=== PATIENT | female | born 1955 | race Caucasian/White ===

== ENCOUNTER → 2016-11-08 | Outpatient (CLI) | payer OTHER ==
[~2016-11-08] MED LIST: ASPIRIN EC81 MG PO; CALCIUM CARBON600 MG PO; CENTRUM COMPLE1 EACH PO; COLACE100 MG PO; COZAAR25 MG PO; DILAUDID 2MG(HYD2 MG PO; ECOTRIN325 MG PO; LEVOTHROID (SY50 MCG PO; MIRALAX17 GM PO; PLAQUENIL200 MG PO; PLAVIX75 MG PO; PROLIA60 MG/ML IM; PROTONIX40 MG PO; ROXICODONE 5MG (5 MG PO; SENNALAX-S TAB1 EACH PO; TOPROL XL25 MG PO; TYLENOL EXTRA500 MG PO; ULTRAM50 MG PO; VALIUM5 MG PO; VITAMIN B-121000 MCG PO
== END | disposition disaster alternative care site (69) ==
LOC: GRAD 09:26
DX: M25.531 Pain in right wrist (principal); S52.501A Unspecified fracture of the lower end of right radius, initial encounter for closed fracture

== ENCOUNTER → 2016-12-21 | Outpatient (CLI) | payer OTHER | END | disposition disaster alternative care site (69) | LOC: GBCOE 13:59 | DX: Z12.31 Encounter for screening mammogram for malignant neoplasm of breast (principal) | CPT/HCPCS: G0202 ==

== ENCOUNTER 2017-03-26 13:00 | Inpatient (IN) | payer OTHER ==
[~2017-03-26] VITALS: Ht 167.6 cm; Wt 91.0 kg
--- NOTE | ~2017-03-26 | DS ---
PATIENT'S NAME: RANI JUNIOR [facility] AGE: 61 Y [address] ROOM: [place] [address] LOCATION: [facility] ADMIT DATE: 04/08/2017 Discharge Summary DISCHARGE DATE: 04/10/2017 FAMILY PHYSICIAN: Swathi Gilliam MD ATTENDING PHYSICIAN: Blake Pantoja PRIMARY DIAGNOSIS: Degenerative joint disease of the right knee. SECONDARY DIAGNOSIS: Include 1. Lupus. 2. Chronic ischemic heart disease. 3. Gastroesophageal reflux disease. 4. Hyperlipidemia. 5. Hypothyroidism. 6. Coronary artery disease. PROCEDURE PERFORMED: Right total knee arthroplasty with computer navigation. HISTORY: The patient is a 61-year-old female, who presents with advanced right knee degenerative joint disease and associated severely compromised activities of daily living. The patient has decided to proceed with total knee arthroplasty after having been thoroughly counseled regarding the risks, benefits, limitations and alternatives. Please refer to the outpatient clinic notes and admission history and physical for this patient. HOSPITAL COURSE: The patient underwent a right total knee arthroplasty on 04/08/2017 without complications. Spinal anesthesia plus adductor canal block plus periarticular local anesthesia was utilized. The patient received 24 hours of perioperative prophylactic antibiotics and remained hemodynamically stable, neurovascularly intact throughout the entire hospital course. The postoperative prophylactic deep venous thrombosis prophylaxis consisted of aspirin 325, early mobilization and pneumatic compression devices. Daily physical therapy for gait training, transfer training range of motion and quadriceps isometric exercises were received. The patient progressed well in physical therapy. On the date of discharge, 04/10/2017, the incision at the knee was healing well and showed no signs of infection. DISPOSITION: Home. DISCHARGE ACTIVITY: The patient is to bear weight as tolerated with range of motion and quadriceps isometric exercises as instructed. The operative extremity is to be elevated at least 90% of the day. There is to be sterile 4x4 gauze dressings to the incision daily. Dr. Pantoja is to be notified immediately if there is any increased pain, fevers, chills erythema or drainage. PATIENT'S NAME: RANI JUNIOR [facility] AGE: 61 Y [address] ROOM: [place] [address] LOCATION: [facility] ADMIT DATE: 04/08/2017 Discharge Summary DISCHARGE DATE: 04/10/2017 FAMILY PHYSICIAN: Swathi Gilliam MD ATTENDING PHYSICIAN: Blake Pantoja DISCHARGE MEDICATIONS: Include 1. Aspirin 325 take one tablet p.o. daily for DVT prevention. 2. Valium 5 mg take one half tablet to one tablet every 6 hours as needed for muscle spasms. 3. Dilaudid 2 mg take one to two tablets p.o. every 4 hours as needed for pain. FOLLOWUP: Followup appointment is to be with Dr. Pantoja on April 16, 2017 for initial postoperative evaluation and x-rays at that time. FAISAL YBARRA FOR BLAKE PANTOJA MD TLB/modl /[id number] d: 04/17/17 0242 t: 04/18/17 1120, DISCHARGE SUMMARY
--- NOTE | ~2017-03-26 | OR ---
PATIENT'S NAME: RANI JUNIOR [facility] AGE: 61 Y [address] ROOM: [place] [address] LOCATION: [facility] ADMIT DATE: 04/08/2017 OR/Procedure Report DISCHARGE DATE: FAMILY PHYSICIAN: Swathi Gilliam MD ATTENDING PHYSICIAN: BLAKE PANTOJA SURGEON: Blake Pantoja MD ASSISTANT THERAPY AIDE: 1. FAISAL Philippe. 2. Kyler Snow CST/FIELD AUDITOR. DATE OF PROCEDURE: 04/08/2017 PRE-OP DIAGNOSIS: Degenerative joint disease, right knee. POST-OP DIAGNOSIS: Degenerative joint disease, right knee. OPERATION: Right total knee arthroplasty with computer navigation. ANESTHESIA: Spinal anesthesia plus adductor canal block plus periarticular local anesthesia (ropivacaine with epinephrine and Toradol). ESTIMATED BLOOD LOSS: Less than 10 mL. DRAIN: None. SPECIMEN: None. COMPLICATIONS: None. IMPLANT SYSTEM: Jose Triathlon Size 5 right posterior stabilized femoral component Size 4 universal modular tibial baseplate 11 mm posterior stabilized size 4 X3 tibial polyethylene insert 29 mm Oval X3 patella component (triple pegged). INDICATIONS FOR SURGERY: The patient is a 61-year-old female who presents with advanced right knee degenerative joint disease and associated severely compromised activities of daily living. The patient has decided to proceed with knee replacement after having been thoroughly counseled regarding the associated risks, benefits, and limitations. We have specifically reviewed the risks and implications of infection, deep venous thrombosis, pulmonary embolism, mortality, neurovascular complications, blood transfusion (and associated potential for disease transmission or transfusion reaction), stiffness, instability, mechanical deterioration of the components (due to wear and or loosening), and the potential need for revision. We have also emphasized the importance of active involvement and compliance with post- operative physical therapy as a means of optimizing range of motion and PATIENT'S NAME: RANI JUNIOR [facility] AGE: 61 Y [address] ROOM: [place] [address] LOCATION: [facility] ADMIT DATE: 04/08/2017 OR/Procedure Report DISCHARGE DATE: FAMILY PHYSICIAN: Swathi Gilliam MD ATTENDING PHYSICIAN: BLAKE PANTOJA functional recovery. Informed consent has been granted. DESCRIPTION OF PROCEDURE: The patient was positioned supine after administration of anesthesia and prophylactic antibiotics. A well-padded pneumatic tourniquet was placed around the right proximal thigh, and the right lower extremity was prepped and draped with vigilant sterile technique. The patient's name as well as the intended operative side and procedure were confirmed with a verbal time-out involving myself, the circulating nurse, the scrub nurse, and the anesthesiologist. Examination under anesthesia demonstrated well-healed inferomedial and inferolateral arthroscopy portal scars. There were no active skin lesions or masses. There was a large effusion. There was no erythema. There was no abnormal warmth. Range of motion under anesthesia was from full extension to 130 degrees of flexion. There was no ligamentous insufficiency. The right lower extremity was elevated and exsanguinated with an Esmarch wrap, and the pneumatic tourniquet was inflated to 300mmHg. The knee was approached through a longitudinal midline incision. A medial parapatellar arthrotomy was performed and the patella was everted. Examination of the joint space demonstrated a large amount of benign-appearing translucent synovial fluid. There were no loose bodies. The cruciate ligaments were intact. There was mild fibrosis of the infrapatellar fat pad. There was a small popliteal cyst, which I decompressed into the posteromedial aspect of the joint by dilating its point of communication with the posteromedial capsule. There was full- thickness loss of articular cartilage involving a 2 x 3 cm diameter region of the medial femoral condyle. There were intermixed grade 3 and grade 4 degenerative changes involving the entire lateral half of the femoral trochlea. There was full-thickness fissuring at the apex of the patella and the lateral facet of the patella. There were moderate grade 3 degenerative changes across the equator of the patella. There was a moderate-sized osteophyte at the medial femoral condyle. There was a moderate-sized osteophyte at the medial femoral trochlea. There was a small osteophyte at the lateral femoral trochlea. There were mild grade 3 degenerative changes throughout the anterior half of the medial tibial plateau. There were small osteophytes at the medial tibial plateau and the lateral femoral condyle. There were mild grade 2 degenerative changes at the lateral femoral condyle and lateral tibial plateau. The medial meniscus was truncated. There was mild inner perimeter tearing at the lateral meniscus. There was mild chondrocalcinosis at the lateral meniscus. Significant sclerosis was noted in the cancellous bone at the anterior distal femoral metaphysis after making the anterior phalange resection (consistent with the bone infarct noted at the distal femoral metaphysis on the preoperative radiographs). PATIENT'S NAME: RANI JUNIOR [facility] AGE: 61 Y [address] ROOM: [id number] [place], [place] [address] LOCATION: [facility] ADMIT DATE: 04/08/2017 OR/Procedure Report DISCHARGE DATE: FAMILY PHYSICIAN: Swathi Gilliam MD ATTENDING PHYSICIAN: BLAKE PANTOJA Remnants of the menisci and cruciate ligaments were excised. The [employer] computer navigation femoral tracker was pinned in place at the distal aspect of the femoral trochlea. Absence of motion between the femur and the tracking device was confirmed manually and visually. Femoral osseous landmarks were obtained in order to calibrate the computer navigation system. Landmarks included the center of rotation of the ipsilateral hip, the center-point of the distal femur, the femoral AP axis, 57 points on the medial femoral condyle articular surface, and 57 points on the lateral femoral condyle articular surface. The [employer] computer navigation system was subsequently utilized to position the distal femoral resection block such that the distal femoral resection was performed perfectly perpendicular to the femoral mechanical axis. The distal femoral resection was performed with a [employer] oscillating saw. The [employer] computer navigation tibial tracker was pinned in place at the anterior aspect of the tibial plateau. Absence of motion between the tibia and the tracking device was confirmed manually and visually. Tibial osseous landmarks were obtained in order to calibrate the computer navigation system. Landmarks included the center-point of the tibial plateau, the AP tibial axis, 57 points on the medial tibial plateau articular surface, 57 points on the lateral tibial plateau articular surface, the medial malleolus, and the lateral malleolus. The [employer] computer navigation system was subsequently utilized to position the proximal tibial resection block such that the proximal tibial resection was performed perfectly perpendicular to the tibial mechanical axis. The proximal tibial resection was performed with a [employer] Precision oscillating saw. Perpendicularity of the tibial resection with respect to the tibial shaft axis was reconfirmed by inserting a spacer- block attached to an extramedullary guide leigha. External rotation of the anterior and posterior femoral resections were set parallel to the epicondylar axis and carefully adjusted in order to create a rectangular flexion gap. The box resection was performed with a reciprocating saw. Anterior and posterior chamfer resections were performed with the oscillating saw. Posterior condyle osteophytes were excised with an osteotome. All other osteophytes were excised with a rongeur. Resection of all remnants of the menisci was reconfirmed. Flexion and extension gaps were confirmed to be symmetric and well balanced with a spacer-block technique. The patella resection was performed with an oscillating saw such that the composite thickness of the reconstructed patella was equivalent to the thickness of the [place] patella. Patella tracking was optimal and there was no need for a lateral retinacular release. All trial components were removed and all prepared osseous surfaces were thoroughly irrigated with pulsatile saline lavage and dried prior to cementing PATIENT'S NAME: RANI JUNIOR [facility] AGE: 61 Y [address] ROOM: [address] [address] LOCATION: [facility] ADMIT DATE: 04/08/2017 OR/Procedure Report DISCHARGE DATE: FAMILY PHYSICIAN: Swathi Gilliam MD ATTENDING PHYSICIAN: BLAKE PANTOJA all three components in a single stage using [employer] Simplex cement containing pre-mixed tobramycin. All extruded excess cement was removed. The entire joint space was thoroughly inspected and thoroughly irrigated with bacteriostatic pulsatile saline lavage to assure that there was no residual debris of any sort. Final range of motion was from full extension (with no passive hyperextension) to 130 degrees of flexion. Patella tracking was reconfirmed to be optimal. There was excellent anteroposterior stability at 90 degrees of flexion. There was less than 1 mm of medial lift-off to valgus stress in full extension. There was less than 1 mm of lateral lift-off to varus stress in full extension. The arthrotomy was closed with multiple simple and [id number] interrupted #1 Vicryl. Subcutaneous tissues were thoroughly re-irrigated with bacteriostatic pulsatile saline lavage. Subcutaneous tissues were re- approximated with simple buried interrupted #0 Vicryl sutures. The skin was closed with simple buried interrupted 2-0 Vicryl sutures followed by surgical erlinda. The dressing consisted of Xeroform gauze, 4x4 gauze, ABD pads and two 6-inch Gaetano Wraps. There were no intra-operative complications. It should be noted that the physician's evaluation assistant played an active, integral role throughout this entire operation. By providing expert retraction, they greatly facilitated and expedited safe and effective exposure of the distal femur, proximal tibia and patella for preparation and implantation of the components. They were also actively involved in the patient's positioning, prepping and draping, as well as wound closure. MD VIKI OCONNELL/stefano /[id number] d: 04/08/17 2248 t: 04/13/17 1149, OPERATIVE SUMMARY
[2017-03-26] MEDS ORDERED: ASPIRIN EC81 MG PO (14:33)
[2017-03-26] MEDS ORDERED: CALCIUM CARBON600 MG PO (14:34)
[2017-03-26] MEDS ORDERED: VITAMIN B-121000 MCG PO (14:34)
[2017-03-26] MEDS ORDERED: TYLENOL EXTRA500 MG PO (14:35)
[2017-03-26] MEDS ORDERED: ULTRAM50 MG PO (14:35)
[2017-03-26] MEDS ORDERED: SENNALAX-S TAB1 EACH PO (14:36)
[2017-03-26] MEDS ORDERED: PROTONIX40 MG PO (14:37)
[2017-03-26] MEDS ORDERED: PROLIA60 MG/ML IM (14:37)
[2017-03-26] MEDS ORDERED: PLAQUENIL200 MG PO (14:38)
[2017-03-26] MEDS ORDERED: PLAVIX75 MG PO (14:38)
[2017-03-26] MEDS ORDERED: CENTRUM COMPLE1 EACH PO (14:39)
[2017-03-26] MEDS ORDERED: ROXICODONE 5MG (5 MG PO (14:39)
[2017-03-26] MEDS ORDERED: COZAAR25 MG PO (14:40)
[2017-03-26] MEDS ORDERED: TOPROL XL25 MG PO (14:40)
[2017-03-26] MEDS ORDERED: LEVOTHROID (SY50 MCG PO ×2 (14:42→14:44)
[2017-04-10] MEDS ORDERED: ECOTRIN325 MG PO (11:51)
[2017-04-10] MEDS ORDERED: COLACE100 MG PO (11:52)
[2017-04-10] MEDS ORDERED: MIRALAX17 GM PO (11:54)
[2017-04-10] MEDS ORDERED: VALIUM5 MG PO (11:55)
[2017-04-10] MEDS ORDERED: DILAUDID 2MG(HYD2 MG PO (11:56)
== END 2017-04-10 13:30 | disposition disaster alternative care site (69) | DRG 470 ==
LOC: G3N 04-08 10:00
PROVIDERS: ADMIT Orthopaedic Surgery
PROC: 0SRC0JZ Replacement of Right Knee Joint with Synthetic Substitute, Open Approach (ICD-10-PCS; principal; 2017-04-08)
DX: M17.11 Unilateral primary osteoarthritis, right knee (principal); E03.9 Hypothyroidism, unspecified; Z79.82 Long term (current) use of aspirin; F17.200 Nicotine dependence, unspecified, uncomplicated
CPT/HCPCS: C1713; C1776; J1100; J1885; J2001; J2250; J2795; J7120

== ENCOUNTER → 2017-03-28 | Outpatient (CLI) | payer OTHER | LOC: GNJRC 10:36 | DX: Z01.818 Encounter for other preprocedural examination (principal); M17.11 Unilateral primary osteoarthritis, right knee ==